=== PATIENT | female | born 1940 ===

== ENCOUNTER 2017-12-13 12:10 | Inpatient (IN) | payer OTHER ==
[2017-12-13 12:39] VITALS: BMI 22.8
--- NOTE | 2017-12-13 14:00 | CP.PCM.HP ---
History of Present Illness - History of Present Illness History of Present Illness: 77 yo female with pmhx of RA, HTN, HLD presents to TCU for deconditioning and PT s/p right TKR with Dr. Rodríguez at [facility] on 12/10/17 POD 3. Seen resting comfortably in bed with right knee dressing intact and leg splint in p lace. Denies any pain while in bed and states she has mild pain when she starts to get up and move around. States that she was taking narcotic pain medication while at [facility] but was changed to tylenol which helped with the pain as well. She reports no trouble or pain with urination but has not had a bowel movement since Saturday. States she has an appetite and is able to eat. Denies N/V/F/C/SOB/CP and has no acute complaints today. PMHx - RA, HTN, HLD PSHx - right TKR, bladder lift All - iodine, penicillin SH - denies smoking and alcohol consumption Present on Admission - Present on Admission Any Indicators Present on Admission: No Review of Systems - Constitutional Constitutional: absent: Chills, Weakness - EENT Eyes: absent: Blurred Vision, Irritation - Cardiovascular Cardiovascular: absent: Chest Pain, Palpitations - Respiratory Respiratory: absent: Cough, Chest Congestion - Gastrointestinal Gastrointestinal: absent: Nausea, Vomiting - Genitourinary Genitourinary: absent: Difficulty Urinating - Musculoskeletal Musculoskeletal: absent: Arthralgias, Back Pain, Neck Pain Past Patient History - Past Medical History & Family History Past Medical History?: Yes - Past Social History Smoking Status: Never Smoked - CARDIAC Hx Cardiac Disorders: Yes Hx Hypertension: Yes - PULMONARY Hx Respiratory Disorders: No - NEUROLOGICAL Hx Neurological Disorder: No - HEENT Hx HEENT Problems: No - RENAL Hx Chronic Kidney Disease: No - ENDOCRINE/METABOLIC Hx Endocrine Disorders: No - HEMATOLOGICAL/ONCOLOGICAL Hx Blood Disorders: No - INTEGUMENTARY Hx Dermatological Problems: No - MUSCULOSKELETAL/RHEUMATOLOGICAL Hx Musculoskeletal Disorders: Yes Hx Falls: No Hx Rheumatoid Arthritis: Yes - GASTROINTESTINAL Hx Gastrointestinal Disorders: Yes - GENITOURINARY/GYNECOLOGICAL Hx Genitourinary Disorders: Yes Other/Comment: HX: BLADDER LIFT - PSYCHIATRIC Hx Psychophysiologic Disorder: No Hx Substance Use: No - SURGICAL HISTORY Hx Surgeries: Yes Other/Comment: HX: BLADDER LIFT - ANESTHESIA Hx Anesthesia: Yes Hx Anesthesia Reactions: No Hx Malignant Hyperthermia: No Meds Allergies/Adverse Reactions: Allergies Allergy/AdvReac Type Severity Reaction Status Date / Time iodine Allergy Intermediate RASH Verified 12/13/17 12:39 Penicillins Allergy Intermediate RASH Verified 12/13/17 12:39 Physical Exam - Constitutional Appears: Well, Non-toxic, No Acute Distress - Head Exam Head Exam: ATRAUMATIC, NORMOCEPHALIC - Eye Exam Eye Exam: EOMI, Normal appearance, PERRL - ENT Exam ENT Exam: Mucous Membranes Moist - Respiratory Exam Respiratory Exam: Clear to Auscultation Bilateral, NORMAL BREATHING PATTERN - Cardiovascular Exam Cardiovascular Exam: REGULAR RHYTHM, +S1, +S2 - GI/Abdominal Exam GI & Abdominal Exam: Normal Bowel Sounds, Soft - Extremities Exam Extremities exam: Positive for: normal capillary refill, pedal pulses present Additional comments: knee dressing clean dry intact splint in place no LLE swelling or erythema present - Neurological Exam Neurological exam: Alert, Oriented x3 - Psychiatric Exam Psychiatric exam: Normal Affect, Normal Mood Assessment & Plan - Assessment and Plan (Free Text) Assessment: 77 yo female patient with pmhx of RA, HTN, HLD seen and evaluated at [facility] admitted to TCU s/p right TKR POD 3 for deconditioning and PT Plan: 1. Osteoarthritis of right knee - s/p right TKR - POD 3 - PT - f/u - dressings c/d/i - RICE protocol - continue to monitor BMP/CBC 2. HTN - chronic, controlled - continue home rx 3. HLD - chronic, controlled - continue home rx 4. RA - chronic, controlled - continue home therapy 5. DVT prophylaxis - Date & Time Date: 12/13/17 Time: 14:19
[2017-12-13] MEDS ORDERED: Lactulose 10 gm/15 ml Syrup PO PRN (15:44)
[2017-12-13] MEDS ORDERED: Ergocalciferol 50,000 Intl Units Cap PO SCH (16:00)
[2017-12-13] MEDS ORDERED: METHOTREXATE SODIUM 25 MG PO SCH (16:00)
[2017-12-14 07:17] LABS: INR 1.1; PROTHROMBIN TIME 12.4 Seconds (9.8-13.1)
[2017-12-14 07:19] LABS: BASO # 0.1 K/uL (0.0-0.2); BASO % 1.4 % (0.0-2.0); EOS # 0.3 K/uL (0.0-0.7); EOS % 5.1 % (0.0-4.0); HEMOGLOBIN 10.9 g/dL (12.0-16.0); LYMPH # 2.4 K/uL (1.0-4.3); LYMPH % 42.1 % (20.0-40.0); MEAN CORPUSCULAR HEMOGLOBIN 29.7 pg (27.0-31.0); MONO # 0.6 K/uL (0.0-0.8); MONO % 10.3 % (0.0-10.0); NEUT # 2.3 K/uL (1.8-7.0); NEUT % 41.1 % (50.0-75.0); NRBC % 0.1 % (0.0-0.0); PARTIAL THROMBOPLASTIN TIME 32.9 Seconds (25.6-37.1); RBC 3.68 Mil/uL (3.80-5.20); RED CELL DISTRIBUTION WIDTH 14.5 % (11.5-14.5); WHITE BLOOD COUNT 5.7 K/uL (4.8-10.8)
[2017-12-14 07:46] LABS: ALB/GLOB RATIO 1.1 (1.0-2.1); ALBUMIN 3.8 g/dL (3.5-5.0); ALT/SGPT 28 U/L (9-52); AST/SGOT 30 U/L (14-36); BLOOD UREA NITROGEN 15 mg/dl (7-17); CALCIUM 9.3 mg/dL (8.4-10.2); GFR NON-AFRICAN AMERICAN > 60
[2017-12-14] MEDS: Pantoprazole 40 mg EC Tab PO SCH (09:10)
[2017-12-15] MEDS: Pantoprazole 40 mg EC Tab PO SCH (09:06)
--- NOTE | 2017-12-15 11:29 | CP.PCM.CON ---
History of Present Illness - History of Present Illness History of Present Illness: 77 yo female with Hx RA on Biologic agents underwent right TKR denies fever chills or cough Pain is manageable Allergies: Penicillin, Iodine Pmhx: RA, HTN, HLD No known history GA, stents, stroke, bleeding disorders or blood clots Review of Systems - Review of Systems All systems: reviewed and no additional remarkable complaints except - Constitutional Constitutional: As Per HPI - EENT Eyes: absent: As Per HPI, Blind Spots, Blurred Vision, Change in Vision, Decreased Night Vision, Diplopia, Discharge, Dry Eye, Exophthalmos, Floaters, Irritation, Itchy Eyes, Loss of Peripheral Vision, Pain, Photophobia, Requires Corrective Lenses, Sees Flashes, Spots in Vision, Tunnel Vision, Other Visual Disturbances, Loss of Vision, Other Ears: absent: As Per HPI, Decreased Hearing, Ear Discharge, Ear Pain, Tinnitus, Abnormal Hearing, Disequilibrium, Dizziness, Other Nose/Mouth/Throat: absent: As Per HPI, Epistaxis, Nasal Congestion, Nasal Discharge, Nasal Obstruction, Nasal Trauma, Nose Pain, Post Nasal Drip, Sinus Pain, Sinus Pressure, Bleeding Gums, Change in Voice, Dental Pain, Dry Mouth, Dysphagia, Halitosis, Hoarsness, Lip Swelling, Mouth Lesions, Mouth Pain, Odynophagia, Sore Throat, Throat Swelling, Tongue Swelling, Facial Pain, Neck Pain, Neck Mass, Other - Breasts Breasts: absent: As Per HPI, Change in Shape, Mass, Pain, Nipple Discharge, Nipple Inversion, Skin Changes, Swelling, Other - Cardiovascular Cardiovascular: absent: As Per HPI, Acrocyanosis, Chest Pain, Chest Pain at Rest, Chest Pain with Activity, Claudication, Diaphoresis, Dyspnea, Dyspnea on Exertion, Edema, Irregular Heart Rhythm, Pain Radiating to Arm/Neck/Jaw, Leg Edema, Leg Ulcers, Lightheadedness, Orthopnea, Palpitations, Paroxysmal Nocturnal Dyspnea, Pedal Edema, Radiating Pain, Rapid Heart Rate, Slow Heart Rate, Syncope, Other - Respiratory Respiratory: absent: As Per HPI, Cough, Dyspnea, Hemoptysis, Dyspnea on Exert ion, Wheezing, Snoring, Stridor, Pain on Inspiration, Chest Congestion, Excessive Mucous Production, Change in Mucous Color, Pain with Coughing, Other Past Patient History - Past Medical History & Family History Past Medical History?: Yes - Past Social History Smoking Status: Never Smoked - CARDIAC Hx Cardiac Disorders: Yes Hx Hypertension: Yes - PULMONARY Hx Respiratory Disorders: No - NEUROLOGICAL Hx Neurological Disorder: No - HEENT Hx HEENT Problems: No - RENAL Hx Chronic Kidney Disease: No - ENDOCRINE/METABOLIC Hx Endocrine Disorders: No - HEMATOLOGICAL/ONCOLOGICAL Hx Blood Disorders: No - INTEGUMENTARY Hx Dermatological Problems: No - MUSCULOSKELETAL/RHEUMATOLOGICAL Hx Rheumatoid Arthritis: Yes - GASTROINTESTINAL Hx Gastrointestinal Disorders: Yes - GENITOURINARY/GYNECOLOGICAL Hx Genitourinary Disorders: Yes Other/Comment: HX: BLADDER LIFT - PSYCHIATRIC Hx Psychophysiologic Disorder: No Hx Substance Use: No - SURGICAL HISTORY Hx Surgeries: Yes Other/Comment: HX: BLADDER LIFT - ANESTHESIA Hx Anesthesia: Yes Hx Anesthesia Reactions: No Hx Malignant Hyperthermia: No Meds Allergies/Adverse Reactions: Allergies Allergy/AdvReac Type Severity Reaction Status Date / Time iodine Allergy Intermediate RASH Verified 12/13/17 12:39 Penicillins Allergy Intermediate RASH Verified 12/13/17 12:39 - Medications Medications: Current Medications Acetaminophen (Tylenol 325mg Tab) 650 mg PO Q6 PRN PRN Reason: Fever >100.4 F Acetaminophen (Tylenol 325mg Tab) 650 mg PO Q6 [facility] Last Admin: 12/15/17 09:11 Dose: 650 mg Apixaban (Eliquis) 2.5 mg PO BID [facility]; Protocol Last Admin: 12/15/17 09:07 Dose: 2.5 mg Benzocaine/Menthol (Cepacol Sore Throat) 1 marisela PO Q3 PRN PRN Reason: Sore Throat Celecoxib (Celebrex) 200 mg PO BID PRN PRN Reason: Arthritis Last Admin: 12/14/17 09:09 Dose: 200 mg Docusate Sodium (Colace) 100 mg PO BID [facility] Last Admin: 12/15/17 09:12 Dose: 100 mg Ergocalciferol (Drisdol 50,000 Intl Units Cap) 1 cap PO QWK [facility] Folic Acid (Folic Acid) 1 mg PO DAILY [facility] Last Admin: 12/15/17 09:08 Dose: 1 mg Home Med (Adalimumab [Humira Pen]) 40 mg SQ Q2W [facility] Home Med (Methotrexate Sodium [Trexall]) 25 mg PO QWK [facility] Last Admin: 12/14/17 17:24 Dose: 25 mg Lactulose (Enulose) 10 gm PO DAILY PRN PRN Reason: Constipation Metoprolol Tartrate (Lopressor) 25 mg PO BID [facility] Last Admin: 12/15/17 09:06 Dose: 25 mg Pantoprazole Sodium (Protonix Ec Tab) 40 mg PO DAILY [facility] Last Admin: 12/15/17 09:06 Dose: 40 mg Pregabalin (Lyrica) 50 mg PO BID [facility] Last Admin: 12/15/17 09:13 Dose: 50 mg Sennosides (Senokot Tab) 17.2 mg PO HS PRN PRN Reason: Constipation Physical Exam - Constitutional Appears: Non-toxic, Chronically Ill - Head Exam Head Exam: NORMOCEPHALIC - Eye Exam Eye Exam: absent: Scleral icterus - ENT Exam ENT Exam: Mucous Membranes Dry - Neck Exam Neck exam: Negative for: Lymphadenopathy - Respiratory Exam Respiratory Exam: Decreased Breath Sounds - Cardiovascular Exam Cardiovascular Exam: REGULAR RHYTHM - GI/Abdominal Exam GI & Abdominal Exam: Diminished Bowel Sounds, Soft. absent: Tenderness - Rectal Exam Rectal Exam: Deferred - Exam Exam: NORMAL INSPECTION - Extremities Exam Extremities exam: Positive for: tenderness, pedal pulses present. Negative for: calf tenderness, full ROM, normal inspection, pedal edema Additional comments: right knee TKR healing decreased rom with some pain - Back Exam Back exam: absent: CVA tenderness (L), CVA tenderness (R) - Neurological Exam Neurological exam: Alert, CN II-XII Intact, Oriented x3, Reflexes Normal - Psychiatric Exam Psychiatric exam: Normal Mood - Skin Skin Exam: Dry Results - Vital Signs Recent Vital Signs: Last Vital Signs Temp 97.3 F L 12/15/17 09:07 Pulse 77 12/15/17 09:07 Resp 20 12/15/17 09:07 BP 135/69 12/15/17 09:07 Pulse Ox 99 12/15/17 09:07 - Labs Result Diagrams: 12/14/17 05:30 12/14/17 05:30 Assessment & Plan (1) S/P total knee replacement Status: Acute (2) S/P total knee replacement Status: Acute (3) Osteoarthritis of right knee Status: Acute (4) Arthritis, rheumatoid Status: Chronic - Assessment and Plan (Free Text) Assessment: agree with current rx
[2017-12-16 08:19] VITALS: RESP 20
[2017-12-16] MEDS: Pantoprazole 40 mg EC Tab PO SCH (09:46)
[2017-12-16] MEDS: Benzocaine/Menthol (Cepacol) Lozenge PO PRN (22:11)
[2017-12-17] MEDS: Pantoprazole 40 mg EC Tab PO SCH (09:05)
--- NOTE | 2017-12-17 16:13 | CP.PCM.PN ---
Subjective - Date & Time of Evaluation Date of Evaluation: 12/17/17 Time of Evaluation: 16:11 - Subjective Subjective: Patient working with PT no acute complaints offered hemodynamically stable on dvt ppx Objective - Vital Signs/Intake and Output Vital Signs (last 24 hours): Temp Pulse Resp BP Pulse Ox 97.5 F L 67 20 125/68 97 12/17/17 08:17 12/17/17 11:03 12/17/17 08:17 12/17/17 09:05 12/17/17 11:03 - Medications Medications: Current Medications Acetaminophen (Tylenol 325mg Tab) 650 mg PO Q6 PRN PRN Reason: Fever >100.4 F Acetaminophen (Tylenol 325mg Tab) 650 mg PO Q6 [facility] Last Admin: 12/17/17 09:04 Dose: 650 mg Apixaban (Eliquis) 2.5 mg PO BID [facility]; Protocol Last Admin: 12/17/17 09:06 Dose: 2.5 mg Benzocaine/Menthol (Cepacol Sore Throat) 1 marisela PO Q3 PRN PRN Reason: Sore Throat Last Admin: 12/16/17 22:11 Dose: 1 marisela Celecoxib (Celebrex) 200 mg PO BID PRN PRN Reason: Arthritis Last Admin: 12/17/17 09:04 Dose: 200 mg Docusate Sodium (Colace) 100 mg PO BID [facility] Last Admin: 12/17/17 09:05 Dose: 100 mg Ergocalciferol (Drisdol 50,000 Intl Units Cap) 1 cap PO QWK [facility] Last Admin: 12/17/17 09:06 Dose: 1 cap Folic Acid (Folic Acid) 1 mg PO DAILY [facility] Last Admin: 12/17/17 09:06 Dose: 1 mg Home Med (Adalimumab [Humira Pen]) 40 mg SQ Q2W [facility] Last Admin: 12/15/17 16:33 Dose: 40 mg Home Med (Methotrexate Sodium [Trexall]) 25 mg PO QWK [facility] Last Admin: 12/14/17 17:24 Dose: 25 mg Lactulose (Enulose) 10 gm PO DAILY PRN PRN Reason: Constipation Metoprolol Tartrate (Lopressor) 25 mg PO BID [facility] Last Admin: 12/17/17 09:05 Dose: 25 mg Pantoprazole Sodium (Protonix Ec Tab) 40 mg PO DAILY [facility] Last Admin: 12/17/17 09:05 Dose: 40 mg Pregabalin (Lyrica) 50 mg PO BID [facility] Last Admin: 12/17/17 09:04 Dose: 50 mg Sennosides (Senokot Tab) 17.2 mg PO HS PRN PRN Reason: Constipation - Labs Labs: 12/14/17 05:30 12/14/17 05:30 PT 12.4 Seconds (9.8-13.1) 12/14/17 05:30 INR 1.1 12/14/17 05:30 APTT 32.9 Seconds (25.6-37.1) 12/14/17 05:30 - Constitutional Appears: No Acute Distress - Head Exam Head Exam: NORMAL INSPECTION - Eye Exam Eye Exam: EOMI, PERRL - ENT Exam ENT Exam: Mucous Membranes Moist - Respiratory Exam Respiratory Exam: Clear to Ausculation Bilateral, NORMAL BREATHING PATTERN - Extremities Exam Additional comments: right knee c/d/i - Neurological Exam Neurological Exam: Alert, Awake, CN II-XII Intact Assessment and Plan - Assessment and Plan (Free Text) Assessment: 77 yo female patient with pmhx of RA, HTN, HLD seen and evaluated at [facility] admitted to TCU s/p right TKR for deconditioning and PT Plan: 1. Osteoarthritis of right knee - s/p right TKR - PT - f/u - dressings c/d/i - RICE protocol - continue to monitor BMP/CBC 2. HTN - chronic, controlled - continue home rx 3. HLD - chronic, controlled - continue home rx 4. RA - chronic, controlled - continue home therapy 5. DVT prophylaxis - on Eliquis
[2017-12-18 06:19] LABS: HEMOGLOBIN 10.4 g/dL (12.0-16.0); MEAN CELL VOLUME 89.2 fl (81.0-99.0); MEAN CORPUSCULAR HEMOGLOBIN 29.2 pg (27.0-31.0); MEAN CORPUSCULAR HGB CONC 32.7 g/dL (33.0-37.0); RBC 3.55 Mil/uL (3.80-5.20); RED CELL DISTRIBUTION WIDTH 14.2 % (11.5-14.5); WHITE BLOOD COUNT 5.3 K/uL (4.8-10.8)
[2017-12-18 06:33] LABS: BLOOD UREA NITROGEN 26 mg/dl (7-17); CALCIUM 9.5 mg/dL (8.4-10.2); GFR NON-AFRICAN AMERICAN > 60
[2017-12-18] MEDS: Pantoprazole 40 mg EC Tab PO SCH (09:22)
[2017-12-18] MEDS: Benzocaine/Menthol (Cepacol) Lozenge PO PRN (22:05)
[2017-12-19] MEDS: Pantoprazole 40 mg EC Tab PO SCH (09:18)
--- NOTE | 2017-12-19 16:22 | CP.PCM.PN ---
Subjective - Date & Time of Evaluation Date of Evaluation: 12/19/17 Time of Evaluation: 14:00 - Subjective Subjective: Patient seen and examined. Denied any complaint Objective - Vital Signs/Intake and Output Vital Signs (last 24 hours): Temp Pulse Resp BP Pulse Ox 97.7 F 80 20 116/60 98 12/19/17 08:18 12/19/17 09:18 12/19/17 08:18 12/19/17 09:40 12/19/17 08:18 - Medications Medications: Current Medications Acetaminophen (Tylenol 325mg Tab) 650 mg PO Q6 PRN PRN Reason: Fever >100.4 F Acetaminophen (Tylenol 325mg Tab) 650 mg PO Q6 [facility] Last Admin: 12/19/17 09:20 Dose: 650 mg Apixaban (Eliquis) 2.5 mg PO BID [facility]; Protocol Last Admin: 12/19/17 09:17 Dose: 2.5 mg Benzocaine/Menthol (Cepacol Sore Throat) 1 marisela PO Q3 PRN PRN Reason: Sore Throat Last Admin: 12/18/17 22:05 Dose: 1 marisela Celecoxib (Celebrex) 200 mg PO BID PRN PRN Reason: Arthritis Last Admin: 12/19/17 07:55 Dose: 200 mg Docusate Sodium (Colace) 100 mg PO BID [facility] Last Admin: 12/19/17 09:18 Dose: 100 mg Ergocalciferol (Drisdol 50,000 Intl Units Cap) 1 cap PO QWK [facility] Last Admin: 12/17/17 09:06 Dose: 1 cap Folic Acid (Folic Acid) 1 mg PO DAILY [facility] Last Admin: 12/19/17 09:18 Dose: 1 mg Home Med (Adalimumab [Humira Pen]) 40 mg SQ Q2W [facility] Last Admin: 12/15/17 16:33 Dose: 40 mg Home Med (Methotrexate Sodium [Trexall]) 25 mg PO QWK [facility] Last Admin: 12/14/17 17:24 Dose: 25 mg Lactulose (Enulose) 10 gm PO DAILY PRN PRN Reason: Constipation Metoprolol Tartrate (Lopressor) 25 mg PO BID [facility] Last Admin: 12/19/17 09:18 Dose: 25 mg Pantoprazole Sodium (Protonix Ec Tab) 40 mg PO DAILY [facility] Last Admin: 12/19/17 09:18 Dose: 40 mg Pregabalin (Lyrica) 50 mg PO BID [facility] Last Admin: 12/19/17 09:20 Dose: 50 mg Sennosides (Senokot Tab) 17.2 mg PO HS PRN PRN Reason: Constipation - Labs Labs: 12/18/17 05:52 12/18/17 05:52 PT 12.4 Seconds (9.8-13.1) 12/14/17 05:30 INR 1.1 12/14/17 05:30 APTT 32.9 Seconds (25.6-37.1) 12/14/17 05:30 - Constitutional Appears: No Acute Distress - Head Exam Head Exam: ATRAUMATIC - Eye Exam Eye Exam: absent: Scleral icterus - ENT Exam ENT Exam: Mucous Membranes Moist - Neck Exam Neck Exam: absent: Meningismus - Respiratory Exam Respiratory Exam: absent: Rales, Rhonchi, Wheezes, Respiratory Distress - Cardiovascular Exam Cardiovascular Exam: REGULAR RHYTHM, +S1, +S2 - GI/Abdominal Exam GI & Abdominal Exam: Soft. absent: Tenderness - Rectal Exam Rectal Exam: Deferred - Extremities Exam Extremities Exam: absent: Full ROM (limited ROM on right knee) - Neurological Exam Neurological Exam: Alert, Oriented x3 - Psychiatric Exam Psychiatric exam: Normal Affect - Skin Skin Exam: Dry, Intact Assessment and Plan - Assessment and Plan (Free Text) Assessment: 77 yo female with history of RA, HTN and HLD had right TKR on 12/10/[address] Moreno at [facility] after failing conservative management. She was transferred to TCU for therapy. 1. S/P Right TKR continue PT and pain management 2. HTN BP stable continue Metoprolol 3. RA continue Methotrexate and Humira 4. DVT prophylaxis on Eliquis
[2017-12-19] MEDS: Benzocaine/Menthol (Cepacol) Lozenge PO PRN (21:09)
[2017-12-20] MEDS: Pantoprazole 40 mg EC Tab PO SCH (08:22)
[2017-12-21] MEDS: Pantoprazole 40 mg EC Tab PO SCH (09:16)
[2017-12-21 21:01] VITALS: O2SAT 99
[2017-12-22] MEDS ORDERED: METHOTREXATE SODIUM 25 MG PO SCH (06:45)
[2017-12-22] MEDS ORDERED: METHOTREXATE SODIUM 2.5 MG PO SCH (07:15)
[2017-12-22] MEDS: Pantoprazole 40 mg EC Tab PO SCH (08:28)
[2017-12-22 08:31] VITALS: BP 147/65; PULSE 83; TEMP 97.3
--- NOTE | 2017-12-22 10:00 | CP.PCM.DIS ---
Provider - Provider Date of Admission: 12/13/17 12:40 Attending physician: Raysa Valencia MD Time Spent in preparation of Discharge (in minutes): 25 Diagnosis - Discharge Diagnosis (1) S/P total knee replacement Status: Acute Comment: continue PT as outpatient. pain medication as needed. follow up with Dr Vasquez on 12/26/17 (2) Hypertension Status: Chronic Comment: BP stable. continue Metoprolol (3) Arthritis, rheumatoid Status: Chronic Comment: on Humira and Methotrexate Hospital Course - Lab Results Lab Results: Most Recent Lab Values WBC 5.3 K/uL (4.8-10.8) 12/18/17 05:52 RBC 3.55 Mil/uL (3.80-5.20) L 12/18/17 05:52 Hgb 10.4 g/dL (12.0-16.0) L 12/18/17 05:52 Hct 31.7 % (34.0-47.0) L 12/18/17 05:52 MCV 89.2 fl (81.0-99.0) 12/18/17 05:52 MCH 29.2 pg (27.0-31.0) 12/18/17 05:52 MCHC 32.7 g/dL (33.0-37.0) L 12/18/17 05:52 RDW 14.2 % (11.5-14.5) 12/18/17 05:52 Plt Count 348 K/uL (130-400) 12/18/17 05:52 MPV 9.0 fl (7.2-11.7) 12/14/17 05:30 Neut % (Auto) 41.1 % (50.0-75.0) L 12/14/17 05:30 Lymph % (Auto) 42.1 % (20.0-40.0) H 12/14/17 05:30 [place] % (Auto) 10.3 % (0.0-10.0) H 12/14/17 05:30 Eos % (Auto) 5.1 % (0.0-4.0) H 12/14/17 05:30 Baso % (Auto) 1.4 % (0.0-2.0) 12/14/17 05:30 Neut # (Auto) 2.3 K/uL (1.8-7.0) 12/14/17 05:30 Lymph # (Auto) 2.4 K/uL (1.0-4.3) 12/14/17 05:30 [place] # (Auto) 0.6 K/uL (0.0-0.8) 12/14/17 05:30 Eos # (Auto) 0.3 K/uL (0.0-0.7) 12/14/17 05:30 Baso # (Auto) 0.1 K/uL (0.0-0.2) 12/14/17 05:30 PT 12.4 Seconds (9.8-13.1) 12/14/17 05:30 INR 1.1 12/14/17 05:30 APTT 32.9 Seconds (25.6-37.1) 12/14/17 05:30 Sodium 136 mmol/l (132-148) 12/18/17 05:52 Potassium 5.0 MMOL/L (3.6-5.0) 12/18/17 05:52 Chloride 101 mmol/L (98-107) 12/18/17 05:52 Carbon Dioxide 28 mmol/L (22-30) 12/18/17 05:52 Anion Gap 12 (10-20) 12/18/17 05:52 BUN 26 mg/dl (7-17) H 12/18/17 05:52 Creatinine 0.9 mg/dl (0.7-1.2) 12/18/17 05:52 Est GFR ( Amer) > 60 12/18/17 05:52 Est GFR (Non-Af Amer) > 60 12/18/17 05:52 Random Glucose 94 mg/dL (65-105) 12/18/17 05:52 Calcium 9.5 mg/dL (8.4-10.2) 12/18/17 05:52 Total Bilirubin 0.5 mg/dl (0.2-1.3) 12/14/17 05:30 AST 30 U/L (14-36) 12/14/17 05:30 ALT 28 U/L (9-52) 12/14/17 05:30 Alkaline Phosphatase 49 U/L (38-126) 12/14/17 05:30 Total Protein 7.2 G/DL (6.3-8.2) 12/14/17 05:30 Albumin 3.8 g/dL (3.5-5.0) 12/14/17 05:30 Globulin 3.4 gm/dL (2.2-3.9) 12/14/17 05:30 Albumin/Globulin Ratio 1.1 (1.0-2.1) 12/14/17 05:30 - Hospital Course Hospital Course: 77 yo female with history of RA, HTN and HLD was admitted to TCU on 12/13/17 for therapy post right TKR which was done by Dr Vasquez on 12/10/17 at [facility]. Patient did well and now is ready for discharge. Discharge Exam - Head Exam Head Exam: ATRAUMATIC - Eye Exam Eye Exam: absent: Scleral icterus - ENT Exam ENT Exam: Mucous Membranes Moist - Respiratory Exam Respiratory Exam: absent: Rales, Rhonchi, Wheezes, Respiratory Distress - Cardiovascular Exam Cardiovascular Exam: REGULAR RHYTHM, +S1, +S2 - GI/Abdominal Exam GI & Abdominal Exam: Soft. absent: Tenderness - Rectal Exam Rectal Exam: Deferred - Neurological Exam Neurological exam: Alert, Oriented x3 - Psychiatric Exam Psychiatric exam: Normal Affect - Skin Skin Exam: Dry, Intact Discharge Plan - Follow Up Plan Condition: GOOD Disposition: HOME/ ROUTINE
== END 2017-12-22 12:55 | disposition home or self-care (01) | DRG 561 ==
LOC: H.TCU 12:40
PROVIDERS: ADMIT Hospitalist; ATTEND Hospitalist
PROC: F07Z9FZ Gait Training/Functional Ambulation Treatment using Assistive, Adaptive, Supportive or Protective Equipment (ICD-10-PCS; principal; 2017-12-13)
PROC: F08Z4FZ Home Management Treatment using Assistive, Adaptive, Supportive or Protective Equipment (ICD-10-PCS; 2017-12-13)
PROC: F07L6FZ Therapeutic Exercise Treatment of Musculoskeletal System - Lower Back / Lower Extremity using Assistive, Adaptive, Supportive or Protective Equipment (ICD-10-PCS; 2017-12-13)
DX: Z47.1 Aftercare following joint replacement surgery (principal); Z96.651 Presence of right artificial knee joint; M17.11 Unilateral primary osteoarthritis, right knee; M06.9 Rheumatoid arthritis, unspecified; I10 Essential (primary) hypertension; E78.5 Hyperlipidemia, unspecified; Z88.0 Allergy status to penicillin; Z91.041 Radiographic dye allergy status